=== PATIENT | female | born 1990 | race African-American/Black ===

== ENCOUNTER → 2017-04-24 | Outpatient (CLI) | payer OTHER ==
--- NOTE | ~2017-04-24 | CT4 ---
[facility] A Service of [facility] & [facility] RADIOLOGY TEXT RESULTS PATIENT: HUSAM SABILLON LOCATION: [facility] : 89 UNIT #: [id number] AGE: [address]: Jennifer Butler SEX: F ORDER DR: [id number] [facility] [address] [place], [place] [address] [id number] O MR#: [id number] Acc #: [id number] NAME: HUSAM SABILLON : 1990 SEX: F STUDY DATE/TIME: 04/24/2017 13:24 UNIT: [facility] ROOM: STUDY DESCRIPTION: CT Abd and Pelv Wo Cont Attending Physician: Jennifer Maki A.P.R.N. Referring Physician: Jennifer Maki A.P.R.N. Ordering Physician: Jennifer Maki A.P.R.N. Primary Care Physician: Jennifer Maki A.P.R.N. MEDICAL IMAGING REPORT This report is preliminary unless electronic signature is present EXAMINATION CT abdomen and pelvis without contrast. DATE 04/24/2017 HISTORY Right flank pain for 1 month. History of kidney stones. COMPARISON None. PROCEDURE 3 mm noncontrast axial images through the abdomen and pelvis. Enteric contrast not administered. Sagittal and coronal reformatted images were obtained. This CT exam was performed with one or more of the following radiation dose reduction techniques: automatic exposure control, adjustment of mA and/or kV according to patient size, and iterative reconstruction. FINDINGS ABDOMEN FINDINGS: Tiny calcified gallstone is present. No pericholecystic inflammation or biliary dilation is seen. Noncontrast appearance of the liver, spleen, pancreas, adrenals and kidneys is within normal limits. No renal or ureteral stone, hydronephrosis or hydroureter seen. There is a tiny umbilical hernia containing only fat. The appendix is not visualized, but no pericecal inflammation is appreciated. Limited evaluation of bowel due to lack of enteric contrast. Moderate colonic stool burden without evidence of high-grade bowel obstruction. PELVIS FINDINGS: Urinary bladder, uterus and rectum are normal. Small [facility] A Service of [facility] & [facility] RADIOLOGY TEXT RESULTS PATIENT: HUSAM SABILLON LOCATION: [facility] : [birth year] UNIT #: [id number] AGE: [address]: Jennifer Butler SEX: F ORDER DR: calcified pelvic phlebolith on the left. No pelvic free fluid. There is a right ovarian cyst measuring about 3.3 cm. IMPRESSION 1. 3.3 cm right ovarian cyst. 2. No acute inflammatory changes. 3. No urinary tract stone or hydronephrosis. 4. Single tiny gallstone is present without evidence of acute cholecystitis. Dictated by... Thelma Mcintosh M.D. THIS IS AN ELECTRONICALLY VERIFIED REPORT Thelma Mcintosh M.D. at 04/27/2017 8:39 AM GO/demario TD: 04/25/2017 19:15 JOB #: [id number] MEDICAL IMAGING REPORT Page 1 of 1 COPY
== END | disposition home or self-care (01) ==
LOC: CCAT 04-23 12:00
DX: R10.819 Abdominal tenderness, unspecified site (principal); N83.201 Unspecified ovarian cyst, right side
CPT/HCPCS: 74176

== ENCOUNTER → 2017-05-22 | Outpatient (CLI) | payer OTHER ==
[2017-05-22 12:00] LABS: URINE APPEARANCE CLEAR; URINE BILIRUBIN NEG (NEG); URINE BLOOD NEG (NEG); URINE COLOR YELLOW; URINE GLUCOSE NEG (NEG); URINE KETONE NEG (NEG); URINE LEUKOCYTE ESTERASE NEG (NEG); URINE NITRATE NEG (NEG); URINE PH 6.5 (5-8); URINE PROTEIN NEG (NEG); URINE SPECIFIC GRAVITY 1.022 (1.003-1.035); URINE UROBILINOGEN 0.2 MG/DL (NEG)
== END | disposition home or self-care (01) ==
LOC: CLAB 11:40
PROVIDERS: Specialist
DX: R10.9 Unspecified abdominal pain (principal)
CPT/HCPCS: 81003